=== PATIENT | male | born 1985 | race Caucasian/White ===

== ENCOUNTER → 2017-06-22 | Outpatient (CLI) | payer BC ==
--- NOTE | 2017-06-22 10:43 | Diagnostic Imaging Report ---
INDICATION: Right shoulder pain. TIME OF EXAM: 10:28 a.m. Two views of the right shoulder were obtained. The humeral and acromioclavicular alignment are normal. Acromiohumeral space is normal. No fracture or dislocation is identified. IMPRESSION: No acute bony abnormality is detected. Dictated by: Dictated on workstation # [id number]
== END ==
LOC: RAD 09:58
DX: M25.511 Pain in right shoulder (principal)
CPT/HCPCS: 73030

== ENCOUNTER → 2017-07-06 | Outpatient (CLI) | payer BC ==
--- NOTE | 2017-07-06 15:05 | Diagnostic Imaging Report ---
PROCEDURE: MRI right joint upper extremity without contrast. TECHNIQUE: Multiplanar, multisequence non contrast-enhanced MRI of the right upper extremity was accomplished. INDICATION: Right shoulder pain radiating to the neck and posterior shoulder. Locking in the shoulder joint. COMPARISON: Radiograph from 06/22/2017. FINDINGS: No acute fracture or dislocation is seen in the right shoulder. Alignment appears normal. The joint spaces are generally preserved. There is no significant glenohumeral joint effusion, although there is fluid in the proximal long head of the biceps tendon sheath. Trace fluid is seen in the subacromial-subdeltoid bursa. The rotator cuff tendons appear intact. There is mild edema in the anterior supraspinatus musculature. No muscular atrophy is seen. The glenoid labrum is suboptimally evaluated in the absence of contrast; however, no discrete tear is seen. No paralabral cysts are identified. The acromion demonstrates a curved undersurface without significant downsloping or hooking. The coracoclavicular and coracoacromial ligaments are intact. The soft tissues about the right shoulder are otherwise unremarkable. IMPRESSION: 1. Minimal edema in the anterior supraspinatus musculature, may represent a low-grade strain. No rotator cuff tear is seen. 2. Minimal subacromial-subdeltoid bursitis. 3. Fluid in the proximal long head of the biceps tendon, without symmetric fluid in the glenohumeral joint, may represent tenosynovitis. Dictated by: Dictated on workstation # [id number]
== END ==
LOC: RAD 13:58
DX: M24.811 Other specific joint derangements of right shoulder, not elsewhere classified (principal)
CPT/HCPCS: 73221

== ENCOUNTER 2021-10-07 15:00 | Outpatient (RCR) | payer OTHER | END 2021-10-10 | disposition home or self-care (01) | PROVIDERS: ATTEND Nurse Practitioner Family | DX: M67.834 Other specified disorders of tendon, left wrist (principal) ==

== ENCOUNTER 2021-10-19 15:47 | Outpatient (RCR) | payer OTHER | END 2021-10-19 17:00 | disposition home or self-care (01) | PROVIDERS: ATTEND Nurse Practitioner Family | DX: M67.834 Other specified disorders of tendon, left wrist (principal) ==